=== PATIENT | male | born 1970 | race Caucasian/White ===

== ENCOUNTER 2018-11-07 08:12 | Emergency (ER) | payer MEDICARE ==
[~2018-11-07] VITALS: Ht 188 cm; Wt 195.0 kg
[~2018-11-07 08:12] MED LIST: ABILIFY10 MG PO; ADVAIR 500/501 EA INH; BUPROPION XL300 MG PO; CLONAZEPAM1 MG PO; CRESTOR20 MG PO; GLYBURIDE-METF1 EAC1 PO; LISINOPRIL-HCT1 EAC2 PO; METHOCARBAMOL750 MG PO; MIRAPEX1 MG PO; MOTRIN800 MG PO; NOVOLOG MI100 UNIT/1 SQ; PROAIR HFA INH8.5 GM INH; VIAGRA25 MG PO
== END 2018-11-07 09:08 | disposition home or self-care (01) ==
LOC: ER 08:12
DX: S39.012A Strain of muscle, fascia and tendon of lower back, initial encounter (principal); G89.29 Other chronic pain; X50.0XXA Overexertion from strenuous movement or load, initial encounter; Y92.008 Other place in unspecified non-institutional (private) residence as the place of occurrence of the external cause; I10 Essential (primary) hypertension; E11.9 Type 2 diabetes mellitus without complications; E78.5 Hyperlipidemia, unspecified; F31.9 Bipolar disorder, unspecified; Z98.84 Bariatric surgery status
CPT/HCPCS: 99282

== ENCOUNTER 2019-05-02 07:50 | Emergency (ER) | payer MEDICARE ==
[~2019-05-02] VITALS: Ht 188 cm; Wt 195.0 kg
--- OUTSIDE RECORDS SUMMARY | 2019-05-02 07:52 | XMS REPORT ---
[facility] Address Unknown Phone Unavailable Care Team Providers Care Network Support Analyst Name Role Phone Unavailable Unavailable Problems This patient has no known problems. Allergies, Adverse Reactions, Alerts This patient has no known allergies or adverse reactions. Medications This patient has no known medications. Results Test Description Test Time Test Comments Text Results Atomic Results Result Comments MR, SPINE, LUMBAR, WITHOUT CONTRAST 2018-11-13 08:43:00 Reason for Exam:->m54.42 m54.41 FINAL REPORT MR, SPINE, LUMBAR, WITHOUT CONTRAST INDICATION: m54.42 m54.41m54.42 m54.41 COMPARISON: None TECHNIQUE: Multiplanar, multisequence MR images of the lumbar spine without contrast. FINDINGS: Numbering: Last fully formed disc space is designated L5-S1. Spinal cord: The conus medullaris is normal is size, signal intensity, and position, terminating at the L1 level. Osseous structures: The lumbar spine demonstrates normal alignment without scoliosis or listhesis. Vertebral body height is preserved. Pedicles are congenitally shortened. Incidental note of limbus vertebra at the L4 vertebral body, representing normal variant. Facet arthropathy is present at all lumbar levels. No aggressive osseous lesions are identified. Discs: There is multilevel disc dessication without loss of disc space height. Evaluation of the individual levels demonstrates: L1/L2: No disc herniation, spinal canal stenosis, or neural foraminal narrowing. L2/L3: Multifactorial degenerative c hanges including central disc protrusion and asymmetric ligamentous redundancy, greater on the left. Moderate to severe canal narrowing. Moderate right and severe left foraminal stenosis. L3/L4: Broad disc protrusion and facet arthropathy create moderate canal narrowing. Mild to moderate bilateral foraminal stenosis. L4/L5: Central disc protrusion with moderate canal narrowing. Moderate to severe bilateral foraminal stenosis. L5/S1: Mild broad disc bulge without canal narrowing. Moderate bilateral foraminal stenosis. Paraspinal soft tissues: Paraspinal soft tissues and visible retroperitoneal structures are unremarkable. IMPRESSION: Degenerative changes are greatest at the L2-3 level where there is moderate to severe canal narrowing and moderate to severe left foraminal stenosis. Moderate canal and mild to moderate bilateral foraminal stenosis at L4-5. Imaging finding should be correlated with localizing radiculopathy. Signed: JR Willson Robert MDReport Verified Date/Time: 11/13/2018 08:43:13 Reading Location: [facility] C013 Neuro Reading Room
== END 2019-05-02 08:30 | disposition home or self-care (01) ==
LOC: ER 07:50
DX: L03.311 Cellulitis of abdominal wall (principal); L03.115 Cellulitis of right lower limb; L03.116 Cellulitis of left lower limb; I10 Essential (primary) hypertension; E11.9 Type 2 diabetes mellitus without complications; E78.5 Hyperlipidemia, unspecified; F31.9 Bipolar disorder, unspecified; Z98.84 Bariatric surgery status
CPT/HCPCS: 99282